=== PATIENT | male | born 2000 | race Caucasian/White ===

== ENCOUNTER 2021-12-16 18:10 | Emergency (ER) | payer BC ==
[~2021-12-16] VITALS: Ht 182.9 cm; Wt 102.1 kg
--- NOTE | 2021-12-16 20:28 | NUR ---
BIBS FOR C/O DIZZINESS, POSTERIOR H/A AND CHEST TIGHTNESS X 3WK. PT AWAKE AND ALERT BREATHING EVEN AND UNLABORED. CHANGED INTO GOWN AND PLACED ON VP TALENT MANAGEMENT AND PULSE OX ALL V/S WNL.
[2021-12-16] MEDS ORDERED: KETOROLAC TROMETHAMINE INJ 30 MG/ML VIAL ONE (20:52)
[2021-12-16] MEDS ORDERED: KETOROLAC TROMETHAMINE INJ 30 MG/ML VIAL IM ONE (21:00)
--- NOTE | 2021-12-16 21:20 | NUR ---
PT TAKEN TO AND RETURNED FROM CT SCAN
--- NOTE | 2021-12-16 22:47 | NUR ---
Patient discharged to home in stable condition. Written and verbal after care instructions given. Patient verbalizes understanding of instruction.
[2021-12-17 00:26] VITALS: BP 142/99
== END 2021-12-16 22:47 | disposition home or self-care (01) ==
LOC: ER 19:14
DX: R42 Dizziness and giddiness (principal); J45.909 Unspecified asthma, uncomplicated; F41.9 Anxiety disorder, unspecified
CPT/HCPCS: 70450; 96372; 99284; J1885

== ENCOUNTER 2022-02-03 20:52 | Emergency (ER) | payer BC ==
[~2022-02-03] VITALS: Ht 182.9 cm; Wt 108.9 kg
--- NOTE | 2022-02-03 21:15 | NUR ---
BIBSELF C/O BUMP/CYST TO RIGHT CHEEK AREA. PLACED IN BED. VITALS CHECKED.
--- NOTE | 2022-02-03 21:20 | NUR ---
SEEN BY DR PEREZ AT BEDSIDE.
[2022-02-03] MEDS ORDERED: CLIN150C16 PO (21:28)
--- NOTE | 2022-02-03 21:47 | NUR ---
Patient discharged to home in stable condition. Written and verbal after care instructions given. Patient verbalizes understanding of instruction.
--- NOTE | 2022-02-03 21:47 | NUR ---
DRAINAGED DONE BY LEXIE HERNADEZ. DRESSING APPLIED
[2022-02-03 21:49] VITALS: BP 131/69
== END 2022-02-03 21:49 | disposition home or self-care (01) ==
LOC: ER 20:54
DX: L02.01 Cutaneous abscess of face (principal); J45.909 Unspecified asthma, uncomplicated; F41.9 Anxiety disorder, unspecified; Z79.899 Other long term (current) drug therapy

== ENCOUNTER 2022-05-12 20:09 | Emergency (ER) | payer BC ==
[~2022-05-12] VITALS: Ht 182.9 cm; Wt 108.0 kg
[~2022-05-12 20:09] MED LIST: CLIN150C16 PO
--- NOTE | 2022-05-12 20:23 | NUR ---
PRESENTED TO THE ER FOR EVALUATION OF MIDSTERNAL CP AND MID UPPER BACK PAIN 2/10 FOR ONE HOUR. NO SOB, FEVER OR CHILLS, NO N/V. VSS. PLACED PT IN BED 11 ER ON MONITOR . AWAITING FOR 'S [facility]LEX[facility]
--- NOTE | 2022-05-12 20:34 | NUR ---
EMT AT PT'S BEDSIDE FOR EKG
--- NOTE | 2022-05-12 20:39 | NUR ---
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
[2022-05-12] MEDS ORDERED: ACETAMINOPHEN ES 500 MG TABLET ONE (21:28)
[2022-05-12 21:34] VITALS: BP 138/87
--- NOTE | 2022-05-12 21:34 | NUR ---
Patient discharged to home in stable condition. Written and verbal after care instructions given. Patient verbalizes understanding of instruction.
[2022-05-12] MEDS ORDERED: ACETAMINOPHEN 325 MG TABLET PO ONE (22:00)
== END 2022-05-12 21:35 | disposition home or self-care (01) ==
LOC: ER 20:11
DX: R07.89 Other chest pain (principal); J45.909 Unspecified asthma, uncomplicated; F41.9 Anxiety disorder, unspecified; Z79.899 Other long term (current) drug therapy
CPT/HCPCS: 71045-TC

== ENCOUNTER 2022-11-30 16:35 | Emergency (ER) | payer BC, MEDICAID ==
[~2022-11-30] VITALS: Ht 182.9 cm; Wt 108.9 kg
--- NOTE | 2022-11-30 17:15 | NUR ---
C/O RIGHT SIDED EAR PAIN WITH MUFFLED HEARING X 3-4 DAYS. PT STATES " I WAS PRESCRIBED EARDROPS, BUT IT DOES NOT WORK". PT AMBULATED TO BED WITH STEADY GAIT, CONNECTED TO MONITOR, VIAL SIGNS WNL, AWAITING MD ORDERS.
--- NOTE | 2022-11-30 17:21 | NUR ---
AT BEDSIDE FOR EVAL
[2022-11-30] MEDS ORDERED: AMOX500C2 PO (18:08)
--- NOTE | 2022-11-30 18:11 | NUR ---
Patient discharged to home in stable condition. Written and verbal after care instructions given. Patient verbalizes understanding of instruction.
[2022-11-30 18:12] VITALS: BP 136/87
== END 2022-11-30 18:12 | disposition home or self-care (01) ==
LOC: ER 16:50
DX: H66.91 Otitis media, unspecified, right ear (principal); H72.91 Unspecified perforation of tympanic membrane, right ear; J45.909 Unspecified asthma, uncomplicated; F41.9 Anxiety disorder, unspecified; Z79.899 Other long term (current) drug therapy

== ENCOUNTER 2023-06-17 15:57 | Emergency (ER) | payer MEDICAID ==
[~2023-06-17] VITALS: Ht 182.9 cm; Wt 108.4 kg
[~2023-06-17 15:57] MED LIST changes: +AMOX500C2 PO
[2023-06-17 16:05] VITALS: BP 133/70; TEMP 98.4; O2SAT 99
[2023-06-17] MEDS ORDERED: IBUPROFEN 600 MG TABLET PO ONE (16:30)
[2023-06-17] MEDS ORDERED: AMOXICILLIN TRIHYDRATE 500 MG CAPSULE PO ONE (16:30)
[2023-06-17] MEDS ORDERED: IBUPROFEN 600 MG TABLET ONE (16:37)
[2023-06-17] MEDS ORDERED: AMOXICILLIN TRIHYDRATE 250 MG CAPSULE ONE (16:37)
[2023-06-17] MEDS ORDERED: AMOX500T2 PO (16:39)
== END 2023-06-17 17:24 | disposition home or self-care (01) ==
LOC: ER 15:59
DX: H66.92 Otitis media, unspecified, left ear (principal); I10 Essential (primary) hypertension; J45.909 Unspecified asthma, uncomplicated; F41.9 Anxiety disorder, unspecified